=== PATIENT | female | born 1965 | race African-American/Black ===

== ENCOUNTER 2018-01-24 13:05 | Day surgery (SDC) | payer OTHER ==
[2018-01-21 15:06] VITALS: BMI 22.0
[2018-01-24] MEDS ORDERED: ROCURONIUM BROMIDE 50 MG/5 ML VIAL ONE (14:24)
[2018-01-24] MEDS ORDERED: LIDOCAINE HCL/PF 2% SDV 5ML VIAL ONE (14:24)
[2018-01-24] MEDS ORDERED: PROPOFOL 20 ML ONE (14:24)
[2018-01-24] MEDS ORDERED: MIDAZOLAM HCL 2 MG/2 ML SINGLE DOSE VIAL ONE (14:25)
--- NOTE | 2018-01-24 14:27 | HP ---
Satellite [facility] [place] - Chief Complaint History of Present Illness: 52 year old with ESRD on HD wishes to change to peritoneal dialysis. History Source: Patient - Past Medical History Allergies/Adverse Reactions: Allergies Allergy/AdvReac Type Severity Reaction Status Date / Time No Known Allergies Allergy Verified 01/24/18 13:44 Renal/: Yes: Renal Failure, Hemodialysis ...LMP: 08/23/03 Additional Medical History: Myomectomy - Current Medications Current Medications: Home Medications Medication Instructions Recorded Allopurinol [Zyloprim -] 100 mg PO DAILY 01/21/18 Calcitriol 0.5 mcg PO DAILY 01/21/18 Satellite Physical Exam - Physical Examination Vital Signs: Vital Signs Period Temp Pulse Resp BP Sys/Cloud Pulse Ox Last 24 Hr 97.7 F 88 18 152/93 100 General Appearance: Alert & Oriented x3 ENT: Clear Lung: Clear to auscultation Heart: Regular rate & rhythm Abdomen: Soft, Other (Lower midline scar) Satellite Impression/Plan - Impression/Plan Impression: ESRD on HD Operative Procedure: Laparoscopy, placement peritoneal dialysis catheter Date to be Performed: 01/24/18
--- NOTE | 2018-01-24 14:28 | OP ---
Operative Note - Note: Operative Date: 01/24/18 Pre-Operative Diagnosis: ESRD on HD Operation: Laparosocopy Findings: Adhesions of multiple loops of small intestine and omentum along anterior abdominal wall with no space to place PD catheter Post-Operative Diagnosis: Other (Severe intraabdominal adhesions) Surgeon: David Durand Anesthesiologist/ASSOCIATE DIRECTOR FINANCIAL AID: Suzy Bee Anesthesia: General Operative Report Dictated: Yes
[2018-01-24] MEDS ORDERED: ceFAZolin SODIUM 1 GM VIAL ONE (14:42)
[2018-01-24] MEDS ORDERED: ceFAZolin SODIUM 1 GM VIAL IVPB ONE (14:44)
[2018-01-24] MEDS ORDERED: BUPIVACAINE HCL/PF 0.25% (2.5MG/ML) 10 ML VIAL IJ ONE (14:46)
[2018-01-24] MEDS ORDERED: NEOSTIGMINE METHYLSULFATE 0.5 MG/ML - 10 ML MDV ONE (14:56)
[2018-01-24] MEDS ORDERED: GLYCOPYRROLATE 0.2 MG/1 ML VIAL ONE (14:58)
[2018-01-24] MEDS ORDERED: oxyCODONE HCL 5 MG TABLET PO PRN ×2 (15:19→17:45)
[2018-01-24] MEDS ORDERED: ONDANSETRON 4 MG/2 ML VIAL IVPUSH PRN (15:19)
--- NOTE | 2018-01-24 15:23 | SURG ---
Surgery Health Director Note Health Director: Andressa Kang PA-C Date of Service: 01/24/18 Diagnosis: ESRD on HD Procedure: laparoscopy I was present for the entirety of the operative procedure. For further detail, please refer to operative report. Visit type - Case Type Case Type: Scheduled - Emergency Emergency Visit: No - New patient This patient is new to me today: Yes Date on this admission: 01/24/18
[2018-01-24] MEDS ORDERED: SODIUM CHLORIDE 1,000 ML IV SCH (15:30)
[2018-01-24 16:03] VITALS: TEMP 98
[2018-01-24 16:42] VITALS: PULSE 81
[2018-01-24 17:15] VITALS: BP 151/90
[2018-01-24] MEDS ORDERED: ACETAMINOPHEN 325 MG TABLET (FP) PO PRN (17:46)
--- NOTE | 2018-01-24 21:19 | OP ---
DATE OF OPERATION: 01/24/2018 SURGEON: David Woo MD [employer] SERV[employer] OFFICER: AMAURI Stewart PROCEDURE: Diagnostic laparoscopy. PREOPERATIVE DIAGNOSIS: End-stage renal disease. POSTOPERATIVE DIAGNOSIS: End-stage renal disease. ANESTHESIA: General. ANESTHESIOLOGIST: Suzy Bee MD OPERATIVE FINDINGS: Patient was brought to the operating room with plan to perform laparoscopy and placement of peritoneal dialysis catheter. Her prior surgical history was of myomectomy. Upon entering the abdominal space with a scope, there were severe dense adhesions of multiple loops of small intestine along the entire anterior abdominal wall with no possibility of laparoscopic adhesiolysis and no adequate space for placement of the peritoneal dialysis catheter. OPERATIVE PROCEDURE: Following routine patient identification, general anesthesia was induced. The abdomen was prepped with ChloraPrep. A Veress needle was inserted through the umbilicus. A pneumoperitoneum established with carbon dioxide to 15 mmHg pressure. Marcaine 0.25% was infiltrated in the skin of the midline above the umbilicus, and a small skin incision made. A 5-mm Opti-port was placed under direct visualization. Placement into the peritoneal cavity was performed, and the scope was reinserted with the above-noted findings. The port was moved and repositioned in order to gain view of the Veress needle which was seen entering the peritoneal cavity near but not through a loop of small intestine which was densely adherent to the abdominal wall. There was no evidence of any enterotomy from the placement of the needle. Due to the findings, decision was made to terminate the procedure as it would not be possible to place a peritoneal dialysis catheter and expect it to work in this setting. Therefore, the Veress needle was removed, and again, the area was visualized to make sure there was no bleeding and no evidence of bowel damage. The gas was then evacuated, and the port was removed. The skin incision was closed with sutures of 4-0 Biosyn. Sterile dressings were applied, and the patient was taken to the recovery room in stable condition. DAVID WOO M.D. JESSICA/[id number] MTDD
== END 2018-01-24 18:00 | disposition home or self-care (01) ==
LOC: JASU-SURG 13:05
PROVIDERS: ATTEND Surgery
PROC: 0WJG4ZZ Inspection of Peritoneal Cavity, Percutaneous Endoscopic Approach (ICD-10-PCS; principal; 2018-01-24 15:30)
DX: E11.22 Type 2 diabetes mellitus with diabetic chronic kidney disease (principal); N18.4 Chronic kidney disease, stage 4 (severe); Z79.84 Long term (current) use of oral hypoglycemic drugs; N99.4 Postprocedural pelvic peritoneal adhesions; Z53.8 Procedure and treatment not carried out for other reasons
CPT/HCPCS: 36415; 84132; 94760; J7030

== ENCOUNTER 2018-03-11 09:06 | Day surgery (SDC) | payer SELFPAY ==
[2018-03-11 09:25] VITALS: BMI 21.4
--- NOTE | 2018-03-11 10:06 | PDOC ---
Attending Attestation - HPI HPI: 03/11/18 10:58 The patient is a 52 year old female with a significant past medical history of hypertension, IDDM, Renal Failue on dialysis M,W,F, who presents to the emergency department with one day of Left Bicep pain after a skin graft surgery with Dr. Castillo on February 15. She reports the onset of pain yesterday afternoon and rates the pain as a 6/10, throbbing and constant. She has not taken anything for the pain, :just massaging" the site. She would like to see Dr. Castillo to see if the graft is okay. - Physicial Exam PE: 03/11/18 11:01 ROS: A complete review of 10 out of 10 review of systems is taken and is negative apart from what is previously mentioned below and in the HPI. Vitals: Triage vital signs reviewed General Appearance: No acute distress, well nourished, well developed Head: Atraumatic Eyes: Pupils equal reactive round, extraocular movement intact Neck: Supple; No nuchal rigidity Chest Wall: Nontender Cardiac: Regular rate and rhythm, no murmurs, no rubs, no gallops Lungs: Clear to auscultation bilateral, good air movement bilaterally Abdomen: Soft, nondistended, normal bowel sounds, nontender to palpation Genitourinary: Rectal: Exam deferred Extremities: Full range of motion to all extremities, no cyanosis, clubbing, or edema Skin: +Graft site to left upper arm is not swollen, nontender, no increased warmth, no signs of cellulitis. Warm and dry, no rashes or lesions, no rash, no petechiae Neuro: AOX3; Cranial Nerves 2-12 grossly intact, Strength intact to all extremities, Sensation intact to all extremities, gait normal Psych: Normal mood, normal affect - Medical Decision Making 03/11/18 11:01 52 year old F with history of hypertension, IDDM, and Renal Insufficency ( dialysis MWF) presents to the ED with 1 day of left upper extremity pain to graft site done on 02/15/18. No fevers, chills, nausea, vomiting, rashes. Plan: labs, US, contact Dr. Durand 03/11/18 11:02 Documentation prepared by Isabel Palomares, acting as registered medical assistant for Adam Lemus MD, <Isabel Palomares - Last Filed: 03/11/18 10:58> - Resident Resident Name: Alex Smart - ED Attending Attestation I have performed the following: I have examined & evaluated the patient, The case was reviewed & discussed with the resident, I agree w/resident's findings & plan, Exceptions are as noted - Medical Decision Making Case discussed with Dr. Durand. Patient to be admitted for correction of AV shunt. Patient made nothing by mouth EKG ordered we'll admit to Dr. Durand for further management. <Adam Lemus - Last Filed: 03/11/18 15:13> Heart Score/ECG Review - ECG Impressions Comment:: 03/11/18 15:13 Preop EKG ordered demonstrates ST depressions in leads V4 V5. Patient prior to her surgical procedure in January had preoperative clearance and EKG was done and scanned into the chart is a poor quality EKG but I am able to discern similar ST depressions laterally with T-wave inversions. EKG unchanged from prior <Adam Lemus - Last Filed: 03/11/18 15:13>
--- NOTE | 2018-03-11 10:09 | PDOC ---
History of Present Illness <Adam Lemus - Last Filed: 03/11/18 11:11> - History of Present Illness Initial Comments: 03/11/18 10:14 52 yo F w a hx of HTN, T2DM, Renal Failue on dialysis M,W,F, is here with Left Bicep pain after a skin graft surgery with Dr. Castillo on February 15. The pain began yesterday afternoon and she rates it as a 6/10 throbbing type pain. The pain has stayed constant since yesterday. She has not taken anything for the pain. She would like to see Dr. Castillo to see if the graft is okay. Denies recent fevers, infections, weakness, dizziness, lightheadedness, swelling , chest pain, SOB, difficulty breathing, abdominal pain. 03/11/18 10:19 <Alex Smart - Last Filed: 03/11/18 12:08> - General Chief Complaint: Pain, Acute Stated Complaint: LEFT ARM PAIN Time Seen by Provider: 03/11/18 09:31 Past History <Adam Lemus - Last Filed: 03/11/18 11:11> - Past Medical History Anemia: Yes Asthma: No Cancer: No Cardiac Disorders: No CVA: No COPD: No CHF: No Dementia: No Diabetes: Yes (NO MEDICINE) GI Disorders: No Disorders: No HTN: Yes (NO MEDICINE) Hypercholesterolemia: No Liver Disease: No Seizures: No Thyroid Disease: No Other medical history: STARTED HEMODIALYSIS 01/07, SHILEY CATH IN PLACE RIGHT SUBCLAVIAN - Surgical History Abdominal Surgery: No Appendectomy: No Cardiac Surgery: No Cholecystectomy: No Lung Surgery: No Neurologic Surgery: No Orthopedic Surgery: No - Suicide/Smoking/Psychosocial Hx Smoking History: Never smoked Hx Alcohol Use: Yes ([facility]) Drug/Substance Use Hx: No Substance Use Type: Alcohol Hx Substance Use Treatment: No <Alex Smart - Last Filed: 03/11/18 12:08> - Past Medical History Allergies/Adverse Reactions: Allergies Allergy/AdvReac Type Severity Reaction Status Date / Time No Known Allergies Allergy Verified 03/11/18 09:22 Home Medications: Ambulatory Orders Allopurinol [Zyloprim -] 100 mg PO DAILY 01/21/18 Calcitriol 0.5 mcg PO DAILY 01/21/18 Review of Systems - Review of Systems Comments:: 03/11/18 10:21 MUSCULOSKELETAL: Positive: Left arm pain Absent: myalgia, arthralgia, joint swelling SKIN: Positive: Scab and skin graft on left bicep Absent: rash, itching, pallor CONSTITUTIONAL: Absent: fever, chills, diaphoresis, generalized weakness, malaise, loss of appetite HEENT: Absent: rhinorrhea, nasal congestion, throat pain, throat swelling, difficulty swallowing, mouth swelling, ear pain, eye pain, visual Changes CARDIOVASCULAR: Absent: chest pain, syncope, palpitations, irregular heart rate, lightheadedness , peripheral edema RESPIRATORY: Absent: cough, shortness of breath, dyspnea with exertion, orthopnea, wheezing, stridor, hemoptysis GASTROINTESTINAL: Absent: abdominal pain, abdominal distension, nausea, vomiting, diarrhea, constipation, melena, hematochezia GENITOURINARY: Absent: dysuria, frequency, urgency, hesitancy, hematuria, flank pain, genital pain HEMATOLOGIC/IMMUNOLOGIC: Absent: easy bleeding, easy bruising, lymphadenopathy, frequent infections ENDOCRINE: Absent: unexplained weight gain, unexplained weight loss, heat intolerance, cold intolerance NEUROLOGIC: Absent: headache, focal weakness or paresthesias, dizziness, unsteady gait, seizure, mental status changes, bladder or bowel incontinence PSYCHIATRIC: Absent: anxiety, depression, suicidal or homicidal ideation, hallucinations. <Alex Smart - Last Filed: 03/11/18 12:08> *Physical Exam - Vital Signs Last Vital Signs Temp Pulse Resp BP Pulse Ox 97.5 F L 93 H 14 159/93 100 03/11/18 09:22 03/11/18 09:22 03/11/18 09:22 03/11/18 09:22 03/11/18 09:22 <Adam Lemus - Last Filed: 03/11/18 11:11> - Vital Signs Last Vital Signs Temp Pulse Resp BP Pulse Ox 97.5 F L 93 H 14 159/93 100 03/11/18 09:22 03/11/18 09:22 03/11/18 09:22 03/11/18 09:22 03/11/18 09:22 - Physical Exam Comments: 03/11/18 10:23 Left Arm: There is a small 1-2 CM scab on the Left bicep which is tender to palpation. It is not erythematous or swollen. Equal strength and sensationin the L arm to the R arm. MUSCULOSKELETAL Normal range of motion at all joints. No bony deformities or tenderness. No CVA tenderness. EXTREMITIES: No cyanosis. No clubbing. No edema. No calf tenderness. SKIN: Warm and dry. Normal capillary refill. No rashes. No jaundice. GENERAL: Well developed, well nourished. Awake and alert. No acute distress. HEENT: Normocephalic, atraumatic. PERRLA, EOMI. No conjunctival pallor. Sclera are non- icteric. Moist mucous membranes. Oropharynx is clear. NECK: Supple. Full ROM. No JVD. Carotid pulses 2+ and symmetric, without bruits. No thyromegaly. No lymphadenopathy. CARDIOVASCULAR: Regular rate and rhythm. No murmurs, rubs, or gallops. Distal pulses are 2+ and symmetric. PULMONARY: No evidence of respiratory distress. Lungs clear to auscultation bilaterally. No wheezing, rales or rhonchi. ABDOMINAL: Soft. Non-tender. Non-distended. No rebound or guarding. No organomegaly. Normoactive bowel sounds. NEUROLOGICAL: Alert, awake, appropriate. Cranial nerves 2-12 intact. No deficits to light touch and temperature in face, upper extremities and lower extremities. No motor deficits in the in face, upper extremities and lower extremities. Normoreflexic in the upper and lower extremities. Normal speech. Toes are down-going bilaterally. Gait is normal without ataxia. PSYCHIATRIC: Cooperative. Good eye contact. Appropriate mood and affect. <Alex Smart - Last Filed: 03/11/18 12:08> ED Treatment Course - LABORATORY CBC & Chemistry Diagram: 03/11/18 10:15 03/11/18 10:15 - ADDITIONAL ORDERS Additional order review: Laboratory Results 03/11/18 10:15 Sodium 141 Potassium 4.2 Chloride 102 Carbon Dioxide 29 Anion Gap 10 BUN 65 H Creatinine 4.4 H Creat Clearance w eGFR 10.57 Random Glucose 143 H Calcium 9.2 Total Bilirubin 0.3 AST 57 H ALT 32 Alkaline Phosphatase 429 H Total Protein 7.8 Albumin 3.1 L 03/11/18 10:15 RBC 4.16 MCV 88.6 MCHC 32.5 RDW 14.5 MPV 7.3 L Neutrophils % 69.8 Lymphocytes % 17.5 Monocytes % 8.4 Eosinophils % 3.5 Basophils % 0.8 - Medications Given in the ED: ED Medications Discontinued Medications Generic Name Dose Route Start Last Admin Trade Name Garfield PRN Reason Stop Dose Admin Acetaminophen 1,000 mg 03/11/18 10:16 03/11/18 10:21 Ofirmev Injection - IVPB 03/11/18 10:17 Not Given ONCE ONE Acetaminophen 975 mg 03/11/18 10:18 03/11/18 10:21 Tylenol - PO 03/11/18 10:19 Not Given ONCE ONE <Adam Lemus - Last Filed: 03/11/18 11:11> - LABORATORY CBC & Chemistry Diagram: 03/11/18 10:15 03/11/18 10:15 <Alex Smart - Last Filed: 03/11/18 12:08> Medical Decision Making - Medical Decision Making 03/11/18 10:25 52 yo F w T2Dm, anemia, HTN, Renal Failure on M,W,F dialysis is here w L bicep pain after a surgery with Dr. Castillo on February 15. No fever or recent infections. Plan: Assess for infection, labs, upper extremity DVT, analgesia, re-assess, +/ - consult Dr. Daley Occluded draining vein of AV graft found on Duplex of L upper extremity. Patient is being admitted to Dr. Daleys service. 03/11/18 12:06 <Alex Smart - Last Filed: 03/11/18 12:08> *DC/Admit/Observation/Transfer - Discharge Dispostion Decision to Admit order: Yes <Adam Lemus - Last Filed: 03/11/18 11:11> <Alex Smart - Last Filed: 03/11/18 12:08> Diagnosis at time of Disposition: AV graft malfunction Qualifiers: Encounter type: initial encounter Qualified Code(s): T82.590A - Other mechanical complication of surgically created arteriovenous fistula, initial encounter
[2018-03-11] MEDS ORDERED: ACETAMINOPHEN 1000 MG/100 ML VIAL (NON FORMULARY) IVPB ONE (10:16)
[2018-03-11] MEDS ORDERED: ACETAMINOPHEN 500 MG TABLET (FP) PO ONE (10:18)
[2018-03-11] MEDS ORDERED: ACETAMINOPHEN 325 MG TABLET (FP) ONE (10:19)
[2018-03-11 10:36] LABS: BASO % 0.8 % (0-2.0); EOS % 3.5 % (0-4.5); HEMATOCRIT 36.9 % (32.4-45.2); LYMPH % 17.5 % (8-40); MCH 28.7 pg (25.7-33.7); MCHC 32.5 g/dl (32.0-36.0); MEAN CELL VOLUME 88.6 fl (80-96); MEAN PLT VOLUME 7.3 fl (7.5-11.1); MONO % 8.4 % (3.8-10.2); NEUT % 69.8 % (42.8-82.8); PLATELET COUNT 289 K/MM3 (134-434); RBC 4.16 M/mm3 (3.60-5.2); RDW 14.5 % (11.6-15.6); WHITE BLOOD COUNT 6.2 K/mm3 (4.0-10.0)
[2018-03-11 11:01] LABS: ALBUMIN 3.1 g/dl (3.4-5.0); ALK PHOS 429 U/L (45-117); ANION GAP 10 (8-16); BILIRUBIN,TOTAL 0.3 mg/dL (0.2-1.0); BLOOD UREA NITROGEN 65 mg/dL (7-18); CALCIUM 9.2 mg/dL (8.5-10.1); CHLORIDE 102 mmol/L (98-107); CO2 29 mmol/L (21-32); CREATININE 4.4 mg/dL (0.55-1.02); GLUCOSE,RANDOM 143 mg/dL (74-106); POTASSIUM 4.2 mmol/L (3.5-5.1); SGOT/AST 57 U/L (15-37); SGPT/ALT 32 U/L (12-78); SODIUM 141 mmol/L (136-145); TOT PROT 7.8 g/dl (6.4-8.2)
[2018-03-11] MEDS ORDERED: LIDOCAINE HCL 1%, 10 MG/ML (20ML VIAL) ONE (13:45)
[2018-03-11] MEDS ORDERED: POVIDONE-IODINE OINTMENT 10% - 28.4 GM TUBE ONE (13:45)
[2018-03-11] MEDS ORDERED: HEPARIN NA (PORCINE) 5,000 UNITS/ML 1ML VIAL ONE ×2 (13:45→16:30)
--- NOTE | 2018-03-11 13:53 | EKG ---
Test Reason : Blood Pressure : / mmHG Vent. Rate : 086 BPM Atrial Rate : 086 BPM P-R Int : 182 ms QRS Dur : 086 ms QT Int : 422 ms P-R-T Axes : 056 053 199 degrees QTc Int : 504 ms NORMAL SINUS RHYTHM POSSIBLE LEFT ATRIAL ENLARGEMENT SEPTAL INFARCT , AGE UNDETERMINED PROLONGED QT ABNORMAL ECG NO PREVIOUS ECGS AVAILABLE Confirmed by MCKENZIE MURRIETA MD ([id number]) on 03/11/2018 1:52:35 PM Referred By: Confirmed By:MCKENZIE MURRIETA MD
[2018-03-11] MEDS ORDERED: MIDAZOLAM HCL 2 MG/2 ML SINGLE DOSE VIAL ONE ×2 (14:06→14:13)
[2018-03-11] MEDS ORDERED: LIDOCAINE HCL 1%, 10 MG/ML (20ML VIAL) INF ONE ×2 (14:11)
[2018-03-11] MEDS ORDERED: PROPOFOL 20 ML ONE ×3 (14:16→16:11)
[2018-03-11] MEDS ORDERED: LIDOCAINE HCL/PF 2% SDV 5ML VIAL ONE (15:31)
[2018-03-11] MEDS ORDERED: DEXAMETHASONE SOD PHOSPHATE 4 MG/1 ML VIAL ONE (15:31)
--- NOTE | 2018-03-11 17:26 | HP ---
Satellite H - Chief Complaint History of Present Illness: 52 year old woman with ESRD who had placement of AV graft 3 weeks ago. Post-op there was very poor flow in the graft which clotted. An angiogram of the axillary artery last week show occlusion of the graft and the brachial artery distal to the anastomosis. She has no hand pain or paresthesia. History Source: Patient, Medical Record - Past Medical History Allergies/Adverse Reactions: Allergies Allergy/AdvReac Type Severity Reaction Status Date / Time No Known Allergies Allergy Verified 03/11/18 09:22 Renal/: Yes: Renal Failure, Hemodialysis ...LMP: 08/23/03 Additional Medical History: Myomectomy - Current Medications Current Medications: Home Medications Medication Instructions Recorded Allopurinol [Zyloprim -] 100 mg PO DAILY 01/21/18 Calcitriol 0.5 mcg PO DAILY 01/21/18 Satellite Physical Exam - Physical Examination Vital Signs: Vital Signs Period Temp Pulse Resp BP Sys/Cloud Pulse Ox Last 24 Hr 97.5 F-97.6 F 82-93 14-18 156-159/92-93 100-100 General Appearance: No Distress, Thin ENT: Clear Lung: Clear to auscultation Heart: Regular rate & rhythm Abdomen: Soft Extremities: Other (Left arm no swelling or discoloration. Hand warm, no palpable pulses.) Neurological: Intact Satellite Impression/Plan - Impression/Plan Impression: Thrombosed AV graft and proximal brachial artery without ischemic symptoms distally. Operative Procedure: Open graft thrombectomy and brachial artery thrombectomy Date to be Performed: 03/11/18
--- NOTE | 2018-03-11 17:29 | OP ---
Operative Note - Note: Operative Date: 03/11/18 Pre-Operative Diagnosis: Thrombosed AV graft and braclial artery left arm. Operation: Open thrombecomy of AV graft and brachial artery. Exploration of axillary artery with attempted thrombectomy. Findings: Occlusion of the AV graft with mostly liquid clot. Angiogram showed occlusion of the axillary artery with high bifurcation and distal flow via collaterals. 2 arteries in the distal upper arm 1.5 mm diameter. Post-Operative Diagnosis: Same as Pre-op Surgeon: David Durand Air Conditioning Mechanic Industrial: Arya Guthrie Anesthesiologist/OVER SHORT AND DAMAGE CLERK: Bernice Aguilera MD Anesthesia: Fractional Specimens Removed: Clot form axillary artery and graft Estimated Blood Loss (mls): 100
[2018-03-11] MEDS ORDERED: ONDANSETRON 4 MG/2 ML VIAL IVPUSH PRN (17:36)
[2018-03-11] MEDS ORDERED: traMADol HCL 50 MG TABLET PO PRN (17:45)
[2018-03-11] MEDS ORDERED: CEFAZOLIN 1 GM in DEXTROSE 5%-WATER - 50 ML IVPB ONE (17:56)
--- NOTE | 2018-03-11 17:57 | SURG ---
Surgery Railroad Car Repairman Note Railroad Car Repairman: Arya Guthrie PA-C Date of Service: 03/11/18 Diagnosis: Thrombosed AV graft and braclial artery left arm. Procedure: Open thrombecomy of AV graft and brachial artery. Exploration of axillary artery with attempted thrombectomy I was present for the entirety of the operative procedure. For further detail, please refer to operative report. Visit type - Case Type Case Type: ED Admission - New patient This patient is new to me today: Yes Date on this admission: 03/11/18
[2018-03-11] MEDS ORDERED: ceFAZolin SODIUM 1 GM VIAL ONE (18:04)
[2018-03-11] MEDS ORDERED: ACETAMINOPHEN WITH CODEINE 300MG/30MG TABLET PO PRN (20:50)
[2018-03-11] MEDS: ACETAMINOPHEN WITH CODEINE 300MG/30MG TABLET PO PRN (21:15)
[2018-03-11] MEDS: HEPARIN NA (PORCINE) 5,000 UNITS/ML 1ML VIAL SQ SCH (21:16)
[2018-03-11] MEDS ORDERED: ENOXAPARIN NA (PORCINE) 60 MG/0.6 ML DISP.SYRIN SQ SCH (22:00)
[2018-03-12] MEDS ORDERED: SODIUM CHLORIDE 250 ML IV PRN (01:47)
[2018-03-12] MEDS: ACETAMINOPHEN WITH CODEINE 300MG/30MG TABLET PO PRN (06:05)
[2018-03-12 07:48] VITALS: TEMP 98.1
[2018-03-12] MEDS ORDERED: ALLOPURINOL 100 MG TABLET (FP) PO SCH (10:00)
[2018-03-12] MEDS ORDERED: ASPIRIN COATED 81 MG TABLET.EC PO SCH (10:00)
[2018-03-12] MEDS ORDERED: CALCITRIOL 0.25 MCG CAPSULE (FP) PO SCH (10:00)
[2018-03-12] MEDS: HEPARIN NA (PORCINE) 5,000 UNITS/ML 1ML VIAL SQ SCH (10:20)
--- NOTE | 2018-03-12 11:03 | CONSULT ---
Consult - text type - Consultation Consultation Note: Renal Consult for ESRD on HD This is a 52 year old woman with Hx of ESRD on HD (started in December), DM, Hypertension who was admitted for thrombectomy of AVG. S/p Exploration of axillary artery with attempted thrombectomy yesterday by vascular surgery. Pt had pain in the upper arm that is helped with tylenol. Pt was held in observation overnight for monitoring of pain and pulses in distal arm. Pt feels well this am. Denies any sob, chest pain, abd pain. PMhx: as above Allergies: NKDA Family Hx: Mother and grandmother with CKD Social hx: No T/A/D ROS: as per HPI Home Medications Medication Instructions Recorded Allopurinol [Zyloprim -] 100 mg PO DAILY 01/21/18 Calcitriol 0.5 mcg PO DAILY 01/21/18 Vital Signs Temperature 98.1 F 03/12/18 06:00 Pulse Rate 86 03/12/18 06:00 Respiratory Rate 18 03/12/18 06:00 Blood Pressure 136/79 03/12/18 06:00 O2 Sat by Pulse Oximetry (%) 100 03/11/18 18:10 Intake & Output 03/09/18 03/10/18 03/11/18 03/12/18 23:59 23:59 23:59 23:59 Intake Total 350 Output Total 50 Balance 300 Weight 49.895 kg NAD awake and alert RRR, No M/R CTA no rales soft NT/ND No LE edema Left arm with dressing in place Faint pulses in left hand no cyanosis CBC, BMP 03/11/18 10:15 03/11/18 10:15 Current Medications Acetaminophen/Codeine Phosphate (Tylenol # 3 -) 1 tab PO Q4H PRN PRN Reason: PAIN 1-5 Last Admin: 03/12/18 06:05 Dose: 1 tab Acetaminophen/Codeine Phosphate (Tylenol # 3 -) 2 tab PO Q4H PRN PRN Reason: PAIN 6-10 Allopurinol (Zyloprim -) 100 mg PO DAILY MILENA Aspirin (Ecotrin -) 81 mg PO DAILY MILENA Calcitriol (Rocaltrol -) 0.5 mcg PO DAILY MILENA Fentanyl (Sublimaze Injection -) 25 mcg IVPUSH [id number] PRN PRN Reason: PAIN-PACU ORDER X 4 DOSES ONLY Heparin Sodium (Porcine) (Heparin -) 5,000 unit SQ BID MILENA Last Admin: 03/12/18 10:20 Dose: 5,000 unit Sodium Chloride (Normal Saline -) 250 mls @ 3,000 mls/hr IV PRN PRN PRN Reason: Hypotension during Dialysis Stop: 03/13/18 01:47 Ondansetron HCl (Zofran Injection) 4 mg IVPUSH Q6H PRN PRN Reason: NAUSEA AND/OR VOMITING Tramadol HCl (Ultram -) 50 mg PO Q6H PRN PRN Reason: PAIN LEVEL 1-5 52 year old woman with Hx of ESRD on HD (started in December), DM, Hypertension who was admitted for thrombectomy of AVG. #Thrombosed AVG #ESRD on HD #Hypertension #DM Type 2 For dialysis today as inpatient will use AVG minimal UF as pt makes urine continue pain control vascular follow up continue Calcitriol discharge planning following dialysis Thank you Jeff Saleem DO
[2018-03-12 12:04] LABS: HEMATOCRIT 28.9 % (32.4-45.2); HEMOGLOBIN 9.5 GM/dL (10.7-15.3); MCH 28.9 pg (25.7-33.7); MCHC 32.8 g/dl (32.0-36.0); MEAN CELL VOLUME 88.2 fl (80-96); MEAN PLT VOLUME 7.9 fl (7.5-11.1); PLATELET COUNT 252 K/MM3 (134-434); RBC 3.28 M/mm3 (3.60-5.2); RDW 14.3 % (11.6-15.6); WHITE BLOOD COUNT 6.1 K/mm3 (4.0-10.0)
[2018-03-12 12:36] LABS: ANION GAP 9 (8-16); BLOOD UREA NITROGEN 78 mg/dL (7-18); CALCIUM 8.3 mg/dL (8.5-10.1); CHLORIDE 105 mmol/L (98-107); CO2 28 mmol/L (21-32); CREATININE 5.4 mg/dL (0.55-1.02); GLUCOSE,RANDOM 202 mg/dL (74-106); POTASSIUM 4.8 mmol/L (3.5-5.1); SODIUM 142 mmol/L (136-145)
[2018-03-12 14:15] VITALS: BP 142/96; PULSE 91
[2018-03-15 00:11] LABS: HBSAG SCREEN Negative (Negative); HEP B CORE AB, TOT Negative (Negative)
--- NOTE | 2018-03-15 07:04 | OP ---
DATE OF OPERATION: 03/11/2018 SURGEON: David Durand MD HEALTH UNDERWRITER: AMAURI Shah PROCEDURE: Open thrombectomy of left arm arteriovenous graft and brachial artery, angiogram of the axillary artery. PREOPERATIVE DIAGNOSIS: Thrombosed arteriovenous graft and brachial artery. POSTOPERATIVE DIAGNOSIS: Thrombosed arteriovenous graft and brachial artery. ANESTHESIA: Fractional. ANESTHESIOLOGIST: Bernice Aguilera MD OPERATIVE FINDINGS: The AV graft in the left upper extremity was thrombosed. Angiography revealed occlusion of the distal axillary artery and proximal brachial artery. There was high bifurcation of the brachial artery near the axilla and 2 small arteries exposed at the elbow, each less than 2 mm in diameter. OPERATIVE PROCEDURE: Following routine patient identification with side and site verification, intravenous sedation was established. The left arm was prepped with ChloraPrep. Using duplex imaging, the bifurcated brachial artery at the elbow was identified. Then, 1% lidocaine was infiltrated over the vessel, and they were exposed through a transverse incision. Two small arteries were identified and were carefully mobilized from the surrounding tissues. They were encircled with vessel loops. The AV graft in the arm was also exposed through a short excision in the medial aspect of the upper arm. This was encircled with a vessel loop. The graft was opened with a transverse incision, and No. 4 Vandana catheter was used to remove liquid clot from within the graft. It was not possible to pass the Vandana through either the arterial or the venous anastomosis. Therefore, a 7-Kinyarwanda sheath was placed in the graft in the arterial limb extending towards the artery. An angled wire and catheter were then advanced under fluoroscopic guidance, and the wire manipulated into the proximal axillary artery followed by the catheter. Angiography was then performed with dilute contrast with the above-noted findings. Attempt to pass Vandana catheters alongside the wire allowed for removal of some of the clot in the area and rastafari of some inflow bleeding. There was adherent thrombus within the axillary artery which could not be cleared with the Vandana balloon. The larger of the 2 distal arteries was then opened with a transverse incision. They were flushed with Heparin solution. A No. 3 Vandana catheter was passed proximally, but again, could not retrieve any thrombus from within the vessel. This arteriotomy was closed with interrupted and running sutures of 7-0 Prolene. The graftotomy was also closed with a running suture of 6-0 Prolene. Axillary incision was then opened after infiltrating lidocaine. Subcutaneous tissues were divided using cautery for hemostasis. The arterial and venous limbs of the graft were identified and were dissected free back to the respective anastomoses. The proximal axillary artery was exposed and encircled with a vessel loop. A transverse incision was made in the artery. There was no thrombus seen within the vessel at this level. There was loose intima which was debrided. Inflow was weak. Attempt to pass the Vandana proximally was unsuccessful, and it was feared that there was a dissection which could be made worse, so this was not pursued. The arteriotomy was closed with a running suture of 6-0 Prolene. An incision was then made in the graft extending up towards the fuentes of the graft. Clot within the proximal end of the graft was evacuated with a clamp restoring back-bleeding from the distal axillary artery. This was filled with Heparin solution. This graft was then closed with a running suture of 6-0 Prolene. Due to the severity of the arterial disease, disease was made to terminate the procedure with plans for a possible subclavian axillary bypass in the near future. All wounds were irrigated and closed with interrupted sutures of 3-0 Vicryl and skin cliff. Sterile dressings were applied, and the patient was transferred to the recovery room where she was found to have a warm hand, which was not painful, with normal sensory exam. A weak radial pulse was heard with the Doppler. DAVID DURAND M.D. [id number]
== END 2018-03-12 17:04 | disposition home or self-care (01) ==
LOC: JER 09:06 → JASUSAT 11:11 → J5S 18:30 → JASUSAT 03-12 17:04
PROVIDERS: ATTEND Surgery
PROC: B30JZZZ Plain Radiography of Left Upper Extremity Arteries (ICD-10-PCS; 2018-03-11)
PROC: 03C80ZZ Extirpation of Matter from Left Brachial Artery, Open Approach (ICD-10-PCS; principal; 2018-03-11 13:00)
DX: T82.868A Thrombosis due to vascular prosthetic devices, implants and grafts, initial encounter (principal); I12.0 Hypertensive chronic kidney disease with stage 5 chronic kidney disease or end stage renal disease; E11.22 Type 2 diabetes mellitus with diabetic chronic kidney disease; N18.6 End stage renal disease; Z99.2 Dependence on renal dialysis
CPT/HCPCS: 36415; 80048; 80053; 85025; 85027; 86704; 86706; 86708; 86803; 86850; 86900; 86901; 87340; 93005; 93010; 93971; 94760; 99283-25; J1644